=== PATIENT | male | born 1955 | race Caucasian/White ===

== ENCOUNTER 2016-08-27 06:16 | Inpatient (IN) | payer BC ==
--- NOTE | 2016-07-29 09:19 | HISTORY & PHYSICAL EXAMINATION ---
DATE OF ADMISSION: 08/27/2016 PROCEDURE: Left knee replacement. CHIEF COMPLAINT: Left knee pain. HISTORY OF PRESENT ILLNESS: Severo is a pleasant 60-year-old male who presents for preoperative evaluation prior to left knee replacement. He states he has been having pain in this knee for several years now which has gradually worsened, it has now gotten to the point that it is affecting his daily activities including walking, standing, going up and down steps. He had a previous knee arthroscopy in 01/2016 for partial medial and lateral meniscectomies as well as chondroplasty. He takes oral anti-inflammatories without relief. At this point in time, after discussing further care, would like to proceed with left knee replacement. PAST MEDICAL HISTORY: Sleep apnea, uses CPAP machine. ALLERGIES: No known drug allergies. CURRENT MEDICATIONS: 1. Glucosamine and chondroitin. 2. Advil as needed. PAST SURGICAL HISTORY: 1. Right knee arthroscopy. 2. Left knee arthroscopy. FAMILY HISTORY: Noncontributory. SOCIAL HISTORY: The patient denies a history of alcohol use, smoked 2 packs per day for 15 years, he quit in 1990. REVIEW OF SYSTEMS: Otherwise negative. Please see HPI for pertinent positives. PHYSICAL EXAMINATION: GENERAL: Pramod 60-year-old male in no acute distress, alert and oriented x3. He is 5 feet 10, weighs 225 pounds. HEENT: Normocephalic, atraumatic. CARDIAC: Regular rate and rhythm. No murmurs or gallops appreciated. Resting pulse 80 beats per minute. LUNGS: Clear to auscultation without rales or wheeze bilaterally. ABDOMEN: Soft, nontender. Bowel sounds present. EXTREMITIES: Left lower extremity is neurovascularly intact. Calves are soft and nontender. DP pulse +2. Demonstrate good quad tone. Straight leg raise without lag. No erythema or warmth. Has mild effusion. Overall has varus alignment. He has positive crepitation with motion, range of motion is 0/3/115. Knee is ligamentously stable. IMAGING: Reviewed of the left knee showed findings consistent with degenerative joint disease including joint space narrowing, subchondral sclerosis, osteophyte formation noted. Overall has varus alignment. IMPRESSION: Left knee degenerative joint disease. PLAN: Further care discussed with the patient. At this point in time, has failed conservative measures and would like to proceed with a left knee replacement. We will plan on discharge home with outpatient physical therapy, we will place on aspirin 81 mg p.o. b.i.d. for a month postop.
[2016-08-02 08:03] VITALS: BMI 34.0
--- NOTE | 2016-08-02 08:35 | PAT Medication Instructions ---
Service Date Aug 02, 2016. Current Home Medication List Testosterone (Androgel), 1 PKT TOP QAM Medication Instructions For Your Scheduled Surgery - Hold the following medications the morning of the surgery: Testosterone (Androgel), 1 PKT TOP QAM Nothing to eat or drink after midnight If you have any questions please call us at [phone] (Mercy Corral PA-C ) or [phone] or [phone]
--- NOTE | 2016-08-02 09:01 | DIAGNOSTIC IMAGING REPORT ---
TWO VIEW CHEST CLINICAL HISTORY: Preoperative examination. FINDINGS: PA and lateral chest radiographs are obtained. No prior studies are available for comparison at the time of dictation. The cardiomediastinal silhouette is unremarkable. There is mild after sclerotic calcification of the thoracic aorta. The lungs and pleural spaces are clear. There is no pneumothorax. The bony thorax appears intact. Mild degenerative change is noted throughout the thoracic spine. IMPRESSION: No active disease in the chest. Electronically signed by: Saulo Castro M.D. 08/02/2016 8:59 AM Dictated Date/Time: 08/02/2016 8:58 AM
[2016-08-02 09:39] LABS: BASO % 0.7 %; BASO ABS # 0.03 K/uL (0-0.2); COMPLETE YES; EOS % 3.9 %; HEMATOCRIT 39.5 % (42-52); IG% 0.2 %; LYMPH % 40.5 %; LYMPH ABS # 1.78 K/uL (1.2-3.4); MEAN CORPUSCULAR HEMOGLOBIN 28.6 pg (25-34); MEAN CORPUSCULAR HGB CONC 34.4 g/dl (32-36); MEAN PLATELET VOLUME 10.2 fL (7.4-10.4); NEUT % 42.7 %; PLATELET COUNT 172 K/uL (130-400); RED BLOOD COUNT 4.76 M/uL (4.7-6.1)
[2016-08-02 09:48] LABS: PROTHROMBIN TIME (PATIENT) 10.7 SECONDS (9.0-12.0)
[2016-08-02 09:52] LABS: ESTIMATED AVERAGE GLUCOSE 117 mg/dl; HA1C FLAG Normal (Normal)
[2016-08-02 10:12] LABS: CALCIUM 8.7 mg/dl (8.5-10.1); CREATININE 0.8 mg/dl (0.60-1.40); POTASSIUM 4.2 mmol/L (3.5-5.1)
[2016-08-27] VITALS (9 sets, daily range): BP systolic 111–145; BP diastolic 66–94; PULSE 70–86; TEMP 36.4–37.1; O2SAT 94–98; Ht 177.8 cm; Wt 107.4 kg
[~2016-08-27] VITALS: Ht 177.8 cm; Wt 107.4 kg
[~2016-08-27 06:16] MED LIST: ACETAMINOPHEN 500 MG TAB PO SCH; ANDG TOP; CEFAZOLIN 2000 MG/60 ML D5W 60 ML IV SCH; CeleBREX 200 MG CAP PO SCH; DEXAMETHASONE 4 MG TAB PO SCH; FAMOTIDINE 20 MG TAB PO SCH; GABAPENTIN 300 MG CAP PO SCH; LACTATED RINGER'S 1000ML 1,000 ML IV SCH; LACTATED RINGER'S 1000ML 500 ML IV ONE; LACTATED RINGER'S 1000ML IV SCH; METOCLOPRAMIDE HCL 10 MG TAB PO SCH; ROPIVACAINE 5MG/ML 30 ML 150 MG, BUPIVACAINE/EPINEPHR 0.5% MPF 30 ML, KETOROLAC TROMETH... INFIL SCH
[2016-08-27] MEDS ORDERED: BUPIVACAINE 0.25% 30 ML VIAL ONE (06:24)
[2016-08-27] MEDS ORDERED: BUPIVACAINE 0.5 % 5 MG/1 ML PF 10ML VIAL ONE (06:24)
[2016-08-27] MEDS ORDERED: MIDAZOLAM HCL 1 MG/ML 2ML VIAL ONE ×2 (07:00→07:01)
[2016-08-27] MEDS ORDERED: FENTANYL CITRATE INJ 50 MCG/1 ML 2 ML VIAL ONE (07:01)
--- NOTE | 2016-08-27 07:10 | History & Physical Bridge Note ---
H&P Re-Evaluation Bridge Note: I have examined the patient, reviewed the History & Physical and in the interval since the performance of the History & Physical I have noted the following changes of clinical significance: No changes noted
[2016-08-27] MEDS ORDERED: POVIDONE-IODINE OP SOLN 30 ML BTL ONE (07:19)
[2016-08-27] MEDS ORDERED: ORTHO JOINT ANESTHETIC ONE (07:19)
[2016-08-27] MEDS ORDERED: BACITRACIN 50000 UNIT VIAL ONE (07:20)
[2016-08-27] MEDS: TRANEXAMIC ACID INJ 1,000 MG in SODIUM CHLORIDE 0.9% 100ML 100 ML IV SCH ×2 (07:50→11:58)
[2016-08-27] MEDS ORDERED: KETOROLAC TROMETHAMINE 30 MG/ML VIAL IV. PRN (08:30)
[2016-08-27] MEDS ORDERED: PHENYLEPHRINE 100MCG/ML 5ML SYR IV PRN (08:30)
[2016-08-27] MEDS ORDERED: HYDROmorphone INJ 2 MG/ML SYR/VIAL IV PRN (08:30)
[2016-08-27] MEDS ORDERED: EpHEDrine SULFATE INJ 50 MG/ML AMP IV PRN (08:30)
[2016-08-27] MEDS ORDERED: ATROPINE SULFATE 0.1 MG/ML 5ML SYR IV PRN (08:30)
[2016-08-27] MEDS ORDERED: ONDANSETRON INJ 2 MG/ML 2 ML VIAL IV PRN ×2 (08:30→10:00)
[2016-08-27] MEDS ORDERED: PROPOFOL IV EMULSION 10 MG/ML 20 ML VIAL IV ONE (08:42)
[2016-08-27] MEDS ORDERED: LIDOCAINE HCL 2% 2 ML VIAL (20MG/ML) ONE (08:42)
[2016-08-27] MEDS ORDERED: EpHEDrine SULFATE 50MG/5ML SYR ONE (08:42)
--- NOTE | 2016-08-27 09:17 | [facility] Post Operative Brief Note ---
Immediate Operative Summary Operative Date Aug 27, 2016. Pre-Operative Diagnosis Left knee degenerative joint disease Post-Operative Diagnosis Left knee degenerative joint disease Procedure(s) Performed Left knee total arthroplasty Surgeon Dr Osmin Gamble Regulatory Affairs Intern Surgeon(s) Dr Issac Galeana Estimated Blood Loss 10ML Findings severe djd lt knee Specimens A: Left knee bone and tissue Complication(s) None Disposition Recovery Room / PACU
--- NOTE | 2016-08-27 09:29 | OPERATIVE REPORT ---
DATE OF OPERATION: 08/27/2016 PREOPERATIVE DIAGNOSIS: Severe end-stage degenerative joint disease, left knee. POSTOPERATIVE DIAGNOSIS: Severe end-stage degenerative joint disease, left knee. PROCEDURE: Left total knee arthroplasty utilizing Payan \T\ Nephew Journey II nonblock total knee arthroplasty size 5 femur, 5 tibia, 9 poly, 32 oval patella. SURGEON: Dr. Gamble. HOME THEATER SPECIALIST: IVONNE Farrell, who was necessary for prepping, draping, retraction, and closure of deep fascia, subcu and skin, and was necessary for the case. ESTIMATED BLOOD LOSS: 10 mL COMPLICATIONS: None. TOURNIQUET TIME: 40 minutes. HISTORY: The patient presents as a very pleasant 60-year-old white male with complaints of ongoing severe endstage DJD about his left knee and presents today for left total knee arthroplasty after failing attempts at conservative management. OPERATION AND FINDINGS: PROCEDURE: The patient was properly prepped and draped in supine position for total knee arthroplasty after identifying the appropriate surgical site. An anterior midline incision was made through the subcutaneous tissues down to the region of the extensor mechanism. A medial parapatellar incision was subsequently made. Meticulous hemostasis was obtained and performed at all times. The patella having been subluxed lateralward, medial and lateral meniscal remnants were excised. The patellar cut was then initially made and was sized to the appropriate size. After subluxing the tibia forward the appropriate meniscal fragments having been removed the distal femur was then cut first utilizing a Payan and Nephew nonblock. The distal femoral cuts and chamfer cuts were all made under direct visualization and the proximal tibial osteotomy cut was also made utilizing Payan and Nephew nonblocks and checked with an extramedullary guide. The appropriate trial components on the femur and tibia were placed. Appropriate trial spacers were used to check flexion and extension gaps. With flexion and extension gaps being equal, the components were then subsequently after thorough irrigation and debridement lavage components were then subsequently cemented in the following order: femur, tibia and patella. Exparel was used for intraoperative anesthesia, the medial parapatellar incision was closed utilizing #1 Vicryl, subQ was closed with 2-0 Vicryl, skin was closed with skin clips. A sterile compression dressing was placed. The patient was taken to recovery room in stable condition. Due to the complex nature of the procedure, the entire surgery was performed with the operational assistance of IVONNE Farrell. The golf course assistant, under direct supervision, was involved in the actual performance of all aspects of the surgical procedure including hemostasis, tissue retraction and incision, instrument management, patient positioning, and wound closure. I attest to the content of the Intraoperative Record and any orders documented therein. Any exceptio ns are noted below.
[2016-08-27] MEDS ORDERED: ALUMINUM/MAGNESIUM/SIMETH (MAALOX MAX) 30 ML UDC PO PRN (10:00)
[2016-08-27] MEDS ORDERED: ZOLPIDEM TARTRATE 5 MG TAB PO PRN (10:00)
[2016-08-27] MEDS ORDERED: MAGNESIUM HYDROXIDE SUSP 30 ML UDC PO PRN (10:00)
[2016-08-27] MEDS ORDERED: BISACODYL 10 MG SUPP PR PRN (10:00)
[2016-08-27] MEDS ORDERED: DiphenhydrAMINE HCL 50 MG/ML VIAL IV PRN (10:00)
[2016-08-27] MEDS ORDERED: TAMSULOSIN HCL 0.4 MG CAP PO PRN (10:00)
[2016-08-27] MEDS ORDERED: MoRPHine SULFATE 2 MG/ML CARP IV PRN (10:00)
[2016-08-27] MEDS ORDERED: MoRPHine SULFATE 4 MG/ML 1 ML CARP\\VIAL IV PRN (10:15)
[2016-08-27] MEDS ORDERED: MoRPHine SULFATE 10 MG/ML CARP/VIAL IV PRN (10:15)
--- NOTE | 2016-08-27 10:28 | DIAGNOSTIC IMAGING REPORT ---
LEFT KNEE 2 VIEWS History: Left total knee arthroplasty. Degenerative arthritis. Postop. FINDINGS: The patient is status post a left total knee arthroplasty. The hardware is intact. No fracture or dislocation. Skin dwain and surgical drains are in place. IMPRESSION: Left total knee arthroplasty. No evidence for hardware complication. Electronically signed by: Bob Black M.D. 08/27/2016 10:26 AM Dictated Date/Time: 08/27/2016 10:26 AM
[2016-08-27] MEDS: D5W AND 1/2NSS + 20MEQ KCL 1,000 ML IV SCH ×2 (11:58→21:58)
--- NOTE | 2016-08-27 11:59 | Anesthesiology Progress Note ---
Anesthesia Post Op Note Date & Time Aug 27, 2016 at 11:59 Vital Signs Pain Intensity: 0 Vital Signs Past 12 Hours Date Time Temp Pulse Resp B/P Pulse Ox O2 Delivery O2 Flow Rate FiO2 08/27/16 11:41 79 18 121/76 97 Nasal Cannula 2.0 08/27/16 10:45 36.2 74 12 107/62 96 Nasal Cannula 2 08/27/16 10:30 78 15 105/63 98 Nasal Cannula 2 08/27/16 10:20 73 15 106/64 98 Nasal Cannula 2 08/27/16 10:10 74 16 109/62 100 Mask 10 08/27/16 10:00 78 16 97/58 99 Mask 10 08/27/16 09:53 36.2 78 16 103/61 99 Mask 10 08/27/16 07:06 37.1 70 18 144/94 98 Room Air Notes Mental Status: alert / awake / arousable, participated in evaluation Pt Amnestic to Procedure: Yes Nausea / Vomiting: adequately controlled Pain: adequately controlled Airway Patency, RR, SpO2: stable & adequate BP & HR: stable & adequate Hydration State: stable & adequate Anesthetic Complications: no major complications apparent
[2016-08-27] MEDS: KETOROLAC TROMETHAMINE 30 MG/ML VIAL IV. SCH ×3 (13:14→23:57)
[2016-08-27] MEDS: FERROUS GLUCONATE 324 MG TAB PO SCH ×2 (13:15→18:10)
[2016-08-27] MEDS: ACETAMINOPHEN 500 MG TAB PO SCH ×2 (13:59→21:58)
[2016-08-27 14:47] LABS: URINE APPEARANCE CLEAR (CLEAR); URINE BILIRUBIN NEG (NEG); URINE COLOR YELLOW; URINE EPITHELIAL CELL AUTO 20-30 /lpf (0-5); URINE NITRITE NEG (NEG); URINE PH 6.5 (4.5-7.5); URINE SPECIFIC GRAVITY 1.012 (1.000-1.030); UROBILINOGEN NEG (NEG)
[2016-08-27 14:52] LABS: MANUAL MICROSCOPIC REQUIRED? NO; REVIEW REQ? NO
[2016-08-27] MEDS: CEFAZOLIN IV 2,000 MG in DEXTROSE 5% 50ML 50 ML IV SCH ×2 (16:28→23:57)
[2016-08-27] MEDS: OXYCODONE HCL 10 MG TABCR (OXYCONTIN) PO SCH (21:12)
[2016-08-27] MEDS: DOCUSATE SODIUM 100 MG CAP PO SCH (21:12)
[2016-08-27] MEDS: SENNA 8.6 MG TAB PO SCH (21:12)
[2016-08-27] MEDS: ASPIRIN 81 MG ECTAB PO SCH (21:13)
[2016-08-28] MEDS: OXYCODONE HCL IR 5 MG TAB (IMMEDIATE RELEASE) PO PRN ×3 (01:29→16:14)
[2016-08-28 03:25] VITALS: BP 110/69; PULSE 62; TEMP 36; O2SAT 95
[2016-08-28] MEDS: KETOROLAC TROMETHAMINE 30 MG/ML VIAL IV. SCH (05:52)
[2016-08-28] MEDS: ACETAMINOPHEN 500 MG TAB PO SCH ×3 (05:52→21:51)
[2016-08-28 07:17] LABS: HEMATOCRIT 34.9 % (42-52); MEAN CELL VOLUME 82.3 fL (80-100); MEAN CORPUSCULAR HEMOGLOBIN 28.5 pg (25-34); MEAN CORPUSCULAR HGB CONC 34.7 g/dl (32-36); PLATELET COUNT 179 K/uL (130-400); RED BLOOD COUNT 4.24 M/uL (4.7-6.1)
[2016-08-28 07:35] VITALS: BP 117/75; PULSE 63; TEMP 36.4; O2SAT 96
--- NOTE | 2016-08-28 07:47 | Orthopedic Progress Note ---
Orthopedic Progress Note Date of Service Aug 28, 2016. Subjective Post OP Day: 1 Reports: feeling well, Denies: SOB, calf pain, chest pain, light headedness, nausea / vomiting Additional Notes: pain controlled presently Objective calves soft nontender, N/V intact, A&O x3, toes mobile, hemovac drainage (225ml latest shift) Dressings with mild drainage overnight Date Time Temp Pulse Resp B/P Pulse Ox O2 Delivery O2 Flow Rate FiO2 08/28/16 07:35 36.4 63 18 117/75 96 Room Air 08/28/16 03:25 36.0 62 16 110/69 95 CPAP 08/27/16 23:55 CPAP 08/27/16 23:44 36.4 80 15 111/66 94 Room Air 08/27/16 19:31 36.9 81 18 145/79 95 Room Air 08/27/16 15:55 36.6 86 18 126/76 97 Room Air 08/27/16 15:30 Room Air 08/27/16 13:55 36.5 79 18 125/80 97 Nasal Cannula 3.0 08/27/16 13:23 36.5 79 18 132/77 97 Nasal Cannula 3.0 08/27/16 12:09 79 117/74 08/27/16 11:41 79 18 121/76 97 Nasal Cannula 2.0 08/27/16 11:00 Nasal Cannula 2.0 08/27/16 11:00 Nasal Cannula 2.0 08/27/16 11:00 36.4 77 12 125/75 95 Nasal Cannula 2.0 08/27/16 10:45 36.2 74 12 107/62 96 Nasal Cannula 2 08/27/16 10:30 78 15 105/63 98 Nasal Cannula 2 08/27/16 10:20 73 15 106/64 98 Nasal Cannula 2 08/27/16 10:10 74 16 109/62 100 Mask 10 08/27/16 10:00 78 16 97/58 99 Mask 10 08/27/16 09:53 36.2 78 16 103/61 99 Mask 10 Laboratory Results 24 Hours: Test 08/28/16 06:30 Hematocrit 34.9 % Hemoglobin 12.1 g/dL Assessment & Plan Assessment: POD 1 s/p Left TKA Plan: PT / OT Planning for home with OPPT Inhouse Planning Pain Management: Celebrex, Oxycontin, Morphine, PO Tylenol, Oxy IR DVT Prophylaxis: TEDs, SCDs, ASA Discharge Planning Discharge Planning: home with oppt Pain Management: Oxycontin, Oxy IR DVT Prophylaxis: TEDs, ASA Therapy: Physical Therapy
[2016-08-28 07:50] LABS: BUN/CREATININE RATIO 13.4 (10-20); CALCIUM 8.4 mg/dl (8.5-10.1); CREATININE 0.99 mg/dl (0.60-1.40); POTASSIUM 4.7 mmol/L (3.5-5.1)
--- NOTE | 2016-08-28 07:53 | Discharge Instructions ---
Discharge Instructions Admission Reason for Admission: Left Knee Osteoarthritis Discharge Discharge Diagnosis / Problem: Left Knee Djd Discharge Goals Goal(s): Decrease discomfort, Improve function Activity Recommendations Activity Limitations: per Instructions/Follow-up section Weightbearing Status: Left weightbearing (as tolerated) . Instructions / Follow-Up Instructions / Follow-Up ACTIVITY RECOMMENDATIONS: SELF CARE INSTRUCTIONS AFTER TOTAL KNEE REPLACEMENT A. You may need to continue a physical therapy program after discharge from the hospital. There are several options available to you. Your doctor will assist you in selecting the best one for you. 1. An out-patient facility 2 to 3 times a week for therapy or home therapy. 2. Continue working on all exercises taught to you in the hospital. Your goals should be to increase bending of your knee to 90 degrees and beyond and to fully straighten your knee. B. You may progress at your own pace from walking with a walker or crutches to a cane; then to no assistive devices. C. Make walking a part of your daily routine. Be up as much as comfortable with rest periods throughout the day. Rest with leg elevation is very important. Use the ice wrap frequently for the first 3-4 weeks. D. There are no restrictions on activities. You may ride in a car, shop, participate in investment accounting clerk and all social activities. E. Wear the long elastic stockings (NARESH hose) 20 hours a day for 2 weeks after surgery. They can be removed several times a day for laundering and for a bath. F. You may shower, no tub baths until cleared by your doctor. SPECIAL CARE INSTRUCTIONS: VERY IMPORTANT TO READ AND REVIEW A. There are a few signs you need to watch for after you are home. Call [facility] if you notice any of the followin. Increased severe knee pain. Some pain is expected especially when you exercise. 2. Increased swelling in your leg or knee; pain or swelling of the calf muscle in either lower leg. 3. Any fluid drainage from the incision. 4. Shortness of breath or chest pain. B. Please call [facility] at if you have any concerns or questions about your operation or recovery. The doctor or his nurse will return your call promptly. C. You must take antibiotics before dental work, bladder, bowel or other surgery. Your doctor will provide you with a permanent care to carry describing this precaution. IMPORTANT: * REMEMBER TO TAKE ASPIRIN, 81 MG, TWICE DAILY FOR 4 WEEKS UNLESS OTHERWISE DIRECTED. THIS IS YOUR BLOOD THINNER. * HIGH RISK PATIENTS MAY BE PRESCRIBED A STRONGER BLOOD THINNER. THIS WILL BE PROVIDED AT DISCHARGE. * CALL IF INCREASED PAIN, REDNESS, DRAINAGE OR FEVER GREATER THAT 101. * WEAR NARESH HOSE 20 HOURS PER DAY FOR 2 WEEKS. * Silverlon- This is a large adhesive bandage that contains silver ions. This helps your incision heal by fighting off bacteria and protecting it from the outside environment. You are permitted to shower with this dressing. This will remain on your incision for 7 days and then should be removed. Some visible blood or drainage through the dressing window is normal. If there is significant drainage or leaking noted before the 7 days notify your doctor's office immediately. Once removed, keep incision clean and dry. If there is any drainage or redness noted, please call your surgeon. . FOLLOW UP VISIT: If appointment is not already scheduled: Please call [facility] to make a follow-up appointment for 2 weeks after your surgery at . Current Hospital Diet Patient's current hospital diet: Regular Diet Discharge Diet Recommended Diet: Regular Diet Procedures Procedures Performed: Left knee total arthroplasty Pending Studies Studies pending at discharge: no Laboratory Results Hemoglobin A1c Test 08/02/16 08:30 Range/Units Estimated Average Glucose 117 mg/dl Hemoglobin A1c 5.7 H 4.5-5.6 % Medical Emergencies . Who to Call and When: Medical Emergencies: If at any time you feel your situation is an emergency, please call 911 immediately. . Non-Emergent Contact Non-Emergency issues call your: Surgeon Call Non-Emergent contact if: temperature is above 101.5, your pain is not controlled, your pain is worsening, wound has increased drainage, wound has increased redness . "Provider Documentation" section prepared by Issac Galeana. VTE Core Measure Inpt VTE Proph given/why not?: Other Anticoagulation, T.E.D. Stockings, SCD's
[2016-08-28] MEDS: TESTOSTERONE EXT SCH (08:49)
[2016-08-28] MEDS: DOCUSATE SODIUM 100 MG CAP PO SCH ×2 (08:49→20:57)
[2016-08-28] MEDS: [UNRECOGNIZED DRUG - OTHER] EXT SCH (08:49)
[2016-08-28] MEDS: D5W AND 1/2NSS + 20MEQ KCL 1,000 ML IV SCH (08:49)
[2016-08-28] MEDS: OXYCODONE HCL 10 MG TABCR (OXYCONTIN) PO SCH ×2 (08:49→20:58)
[2016-08-28] MEDS: FERROUS GLUCONATE 324 MG TAB PO SCH ×3 (08:49→19:14)
[2016-08-28] MEDS: ASPIRIN 81 MG ECTAB PO SCH ×2 (08:50→20:57)
[2016-08-28] MEDS: MULTIVITAMIN TAB PO SCH (08:50)
[2016-08-28] MEDS: PANTOprazole SOD 40 MG TAB PO SCH (09:38)
[2016-08-28 12:10] VITALS: BP 130/82; PULSE 71; TEMP 36.4; O2SAT 98
[2016-08-28 15:01] VITALS: BP 145/80; PULSE 69; TEMP 36.4; O2SAT 98
[2016-08-28] MEDS: SENNA 8.6 MG TAB PO SCH (20:57)
[2016-08-28] MEDS: CeleBREX 200 MG CAP PO SCH (20:58)
[2016-08-28 23:18] VITALS: BP 110/71; PULSE 71; TEMP 35.9; O2SAT 97
[2016-08-29] MEDS: OXYCODONE HCL IR 5 MG TAB (IMMEDIATE RELEASE) PO PRN ×4 (03:58→11:35)
[2016-08-29] MEDS: ACETAMINOPHEN 500 MG TAB PO SCH (06:01)
[2016-08-29 07:43] VITALS: BP 123/76; PULSE 63; TEMP 36.4; O2SAT 99
--- NOTE | 2016-08-29 07:43 | Orthopedic Progress Note ---
Orthopedic Progress Note Date of Service Aug 29, 2016. Subjective Post OP Day: 2 Reports: feeling well, Denies: complaints Objective calves soft nontender, N/V intact, A&O x3, toes mobile Silverlon with drainage and cracked at the proximal end. Date Time Temp Pulse Resp B/P Pulse Ox O2 Delivery O2 Flow Rate FiO2 08/29/16 00:25 Room Air 08/28/16 23:18 35.9 71 16 110/71 97 Room Air 08/28/16 16:00 Room Air 08/28/16 15:01 36.4 69 16 145/80 98 Room Air 08/28/16 12:10 36.4 71 18 130/82 98 Room Air 08/28/16 08:20 Room Air Assessment & Plan Assessment: POD 2 s/p Left TKA Plan: Continue PT / OT Planning for home with OPPT today Inhouse Planning Pain Management: Celebrex, Oxycontin, Morphine, PO Tylenol, Oxy IR DVT Prophylaxis: TEDs, SCDs, ASA Discharge Planning Discharge Planning: home with oppt Pain Management: Celebrex, Oxycontin, Oxy IR DVT Prophylaxis: TEDs, ASA Therapy: Physical Therapy
[2016-08-29] MEDS ORDERED: CLB200 PO (07:48)
[2016-08-29] MEDS ORDERED: SNK PO (07:48)
[2016-08-29] MEDS ORDERED: ONDA8TAB6 PO (07:48)
[2016-08-29] MEDS ORDERED: RXC5 PO (07:48)
[2016-08-29] MEDS ORDERED: OXYSR10 PO (07:48)
[2016-08-29] MEDS ORDERED: ACET-1138 PO (07:48)
[2016-08-29] MEDS ORDERED: ASPEC81 PO (07:48)
[2016-08-29] MEDS: FERROUS GLUCONATE 324 MG TAB PO SCH (09:02)
[2016-08-29] MEDS: OXYCODONE HCL 10 MG TABCR (OXYCONTIN) PO SCH (09:02)
[2016-08-29] MEDS: ASPIRIN 81 MG ECTAB PO SCH (09:02)
[2016-08-29] MEDS: DOCUSATE SODIUM 100 MG CAP PO SCH (09:03)
[2016-08-29] MEDS: PANTOprazole SOD 40 MG TAB PO SCH (09:03)
[2016-08-29] MEDS: CeleBREX 200 MG CAP PO SCH (09:03)
[2016-08-29] MEDS: MULTIVITAMIN TAB PO SCH (09:03)
[2016-08-29] MEDS: [UNRECOGNIZED DRUG - OTHER] EXT SCH (09:04)
[2016-08-29] MEDS: TESTOSTERONE EXT SCH (09:04)
[2016-08-29 11:01] VITALS: BP 123/76; PULSE 63; TEMP 36.4; O2SAT 99
--- NOTE | 2016-08-29 13:43 | DISCHARGE SUMMARY ---
DISCHARGE DIAGNOSIS: Degenerative joint disease left knee. SECONDARY DIAGNOSES: Sleep apnea with use of CPAP machine. CONSULTS: None. COMPLICATIONS: None. PROCEDURES: Left total knee arthroplasty performed by Dr. Gamble on 08/27/2016. BRIEF HISTORY: As dictated in the history and physical. HOSPITAL SUMMARY: The patient was admitted on the above-noted date and had the above-noted surgery performed which he tolerated well. On the first postoperative day, he was feeling well and had no complaints. Pain was controlled. Calves were soft and nontender. Neurovascularly was intact. He was alert and oriented x3. Toes were mobile. Dressings did have some noted drainage from overnight. Vital signs were stable. He was afebrile and hemoglobin was 12.1. He was started on physical therapy protocol and continued on DVT prophylaxis and pain management. Plans were for him to return home with outpatient PT. By his second postoperative day, he was feeling well and had no complaints. He had achieved 115 degrees of flexion in PT the previous day and he was remaining stable. Calves are soft, nontender, neurovascularly intact. Toes were mobile. His Silverlon dressing had drainage noted in the window and was cracked at the proximal end. Vital signs were stable. He was afebrile. He was continued on his PT protocol. He was later on progressing well with his physical therapy in the fact that he had obtained 125 degrees of flexion and was ambulating 315 feet x2 with a rolling walker independently and it was felt that he could be discharged to home. For further review, please see chart. LAB AND X-RAY DATA: As per chart. DISCHARGE INSTRUCTIONS: The patient was discharged to home in satisfactory condition on 08/29/2016. DIET: Regular. ACTIVITY: Weightbearing as tolerated left lower extremity. Follow TK instruction sheets and special care instructions as noted. Follow up with Dr. Gamble in 2 weeks. The patient to call for appointment if one has not been made for you. DISCHARGE MEDICATIONS: Acetaminophen 1000 mg p.o. q. 8 hours, aspirin 81 mg p.o. b.i.d., Celebrex 200 mg p.o. b.i.d., Zofran 8 mg p.o. t.i.d. p.r.n., OxyContin 10 mg p.o. q. 12 hours, oxycodone 5-10 mg p.o. q. 4 hours p.r.n., senna 17.2 mg p.o. at bedtime and continue taking AndroGel.
== END 2016-08-29 12:15 | disposition home or self-care (01) | DRG 470 ==
LOC: ENRESERVTM → ENRESERVDT → C.ACU 06:16 → C.MSW 09:55
PROVIDERS: ADMIT Orthopaedic Surgery; ATTEND Orthopaedic Surgery
PROC: 0SRD0J9 Replacement of Left Knee Joint with Synthetic Substitute, Cemented, Open Approach (ICD-10-PCS; principal; 2016-08-27 08:15)
DX: M17.12 Unilateral primary osteoarthritis, left knee (principal); G47.30 Sleep apnea, unspecified; E66.9 Obesity, unspecified; Z68.34 Body mass index [BMI] 34.0-34.9, adult; Z99.89 Dependence on other enabling machines and devices; Z87.891 Personal history of nicotine dependence; Q66.89 Other specified congenital deformities of feet; Z79.899 Other long term (current) drug therapy; Z79.1 Long term (current) use of non-steroidal anti-inflammatories (NSAID)

== ENCOUNTER 2017-08-26 08:36 | Inpatient (IN) | payer BC ==
--- NOTE | 2017-08-22 11:18 | DIAGNOSTIC IMAGING REPORT ---
CHEST 2 VIEWS ROUTINE HISTORY: 61 years-old Male PRE OP preoperative exam. No acute chest complaints. COMPARISON: Chest radiographs 08/02/2016 TECHNIQUE: PA and lateral views of the chest FINDINGS: Cardiomediastinal and hilar silhouettes are within normal limits. Atherosclerosis of the aorta. No pneumothorax, pleural effusion, focal airspace consolidation or overt pulmonary edema. Degenerative changes are seen within the right shoulder and spine. IMPRESSION: No acute process. The above report was generated using voice recognition software. It may contain grammatical, syntax or spelling errors. Electronically signed by: Murali Fernandez M.D. 08/22/2017 11:16 AM Dictated Date/Time: 08/22/2017 11:16 AM
[2017-08-22 12:15] LABS: BASO % 0.4 %; BASO ABS # 0.02 K/uL (0-0.2); EOS % 3.2 %; EOS ABS # 0.15 K/uL (0-0.5); HEMATOCRIT 40.1 % (42-52); HEMOGLOBIN 13.2 g/dL (14.0-18.0); IG# 0.01 K/uL (0.00-0.02); LYMPH % 37.3 %; LYMPH ABS # 1.77 K/uL (1.2-3.4); MEAN CORPUSCULAR HGB CONC 32.9 g/dl (32-36); MEAN PLATELET VOLUME 11.2 fL (7.4-10.4); MONO % 8.6 %; MONO ABS # 0.41 K/uL (0.11-0.59); NEUT % 50.3 %; NEUT ABS # 2.38 K/uL (1.4-6.5); PLATELET COUNT 194 K/uL (130-400); RED CELL DISTRIBUTION WIDTH SD 43.9 fL (36.4-46.3); WHITE BLOOD COUNT 4.74 K/uL (4.8-10.8)
[2017-08-22 12:30] LABS: PTT PATIENT 24.1 SECONDS (21.0-31.0)
[2017-08-22 12:33] LABS: ALBUMIN 3.7 gm/dl (3.4-5.0); BLOOD UREA NITROGEN 12 mg/dl (7-18); CALCIUM 8.8 mg/dl (8.5-10.1); CARBON DIOXIDE 29 mmol/L (21-32); CREATININE 0.82 mg/dl (0.60-1.40); GLUCOSE 84 mg/dl (70-99); POTASSIUM 3.8 mmol/L (3.5-5.1); SODIUM 138 mmol/L (136-145)
[2017-08-22 12:58] LABS: HEMOGLOBIN A1C 5.7 % (4.5-5.6)
[2017-08-22 15:32] VITALS: BMI 32.0
[~2017-08-26] VITALS: Ht 177.8 cm; Wt 102.3 kg
[2017-08-26] VITALS (7 sets, daily range): BP systolic 99–137; BP diastolic 61–89; PULSE 64–80; TEMP 36.3–36.8; O2SAT 93–98; Ht 177.8 cm; Wt 102.3 kg
--- NOTE | 2017-08-26 07:06 | History and Physical ---
History & Physical Date Aug 26, 2017. Chief Complaint Patient presents with severe end-stage tricompartmental degenerative joint disease right knee after failing attempts at conservative management physical therapy anti-inflammatories relative rest activity modification injections viscous supplementations and presents of 4 total knee arthroplasty History of Present Illness Ongoing pain about the right knee with severe end-stage tricompartmental degenerative joint disease no response to conservative management and physical therapy anti-inflammatories relative rest activity modification viscous supplementations The patient is a 61 year old male with complaints of Past Medical/Surgical History Medical Problems: (1) Left knee DJD Additional History Hepatic Disease: No Endocrine Disorder: No Kidney Disease: No Hypertension: No Heart Disease: No Bleeding Tendencies: No Infectious Diseases: No Allergies Coded Allergies: No Known Allergies (Unverified , 08/22/17) Home Medications Scheduled Aspirin-Caffeine (Obi Back & Body 500-32.5 mg), 1 TAB PO PRN Testosterone (Androgel), 1 PKT TOP QAM Physical Examination Skin: warm/dry, no rash Eyes: normal inspection, EOMI, sclerae normal ENT: normal ENT inspection, pharynx normal Head: normocephalic, atraumatic Neck: supple, no adenopathy, trachea midline Respiratory/Chest: lungs clear, normal breath sounds, no respiratory distress Cardiovascular: regular rate, rhythm, no edema, no murmur Abdomen / GI: normal bowel sounds, non tender Back: normal inspection Extremities: + pertinent finding (severe end-stage DJD right knee with varus alignment subchondral cysts marginal osteophytes) Diagnosis Patient presents with severe end-stage tricompartmental degenerative joint disease subchondral cystic changes marginal osteophytes varus alignment on the bone changes large muscle conservative therapy Plan of Treatment Total knee arthroplasty postoperative pain management DVT prophylaxis antibiotics medical management physical therapy necessary
[~2017-08-26 08:36] MED LIST changes: +ASPI-563 PO; +BUPIVACAINE 0.25% 30 ML VIAL ONE; +BUPIVACAINE 0.5 % 5 MG/1 ML PF 10ML VIAL ONE; -CEFAZOLIN 2000 MG/60 ML D5W 60 ML IV SCH; +CEFAZOLIN 2000MG IV PUSH 15 ML IV SCH; -GABAPENTIN 300 MG CAP PO SCH; +GABAPENTIN 600 MG PO SCH; -LACTATED RINGER'S 1000ML 500 ML IV ONE; -LACTATED RINGER'S 1000ML IV SCH; +ROPIVACAINE 5MG/ML 30 ML 150 MG, BUPIVACAINE 0.5% MPF INJ 30 ML, EpINEphrine HCL INJ 0.... INFIL SCH; -ROPIVACAINE 5MG/ML 30 ML 150 MG, BUPIVACAINE/EPINEPHR 0.5% MPF 30 ML, KETOROLAC TROMETH... INFIL SCH
[2017-08-26] MEDS ORDERED: ONDANSETRON INJ 2 MG/ML 2 ML VIAL IV PRN ×2 (08:45→12:45)
[2017-08-26] MEDS ORDERED: HYDROmorphone INJ 0.5 MG/0.5 ML SYR IV PRN (08:45)
[2017-08-26] MEDS ORDERED: LABETALOL HCL IV 5 MG/ML 20ML IV PRN (08:45)
[2017-08-26] MEDS ORDERED: FENTANYL CITRATE INJ 50 MCG/1 ML 2 ML VIAL IV PRN (08:45)
[2017-08-26] MEDS ORDERED: ATROPINE SULFATE 0.1 MG/ML 5ML SYR IV PRN (08:45)
[2017-08-26] MEDS ORDERED: MEPERIDINE HCL 25 MG/ML CARP IV PRN (08:45)
[2017-08-26] MEDS ORDERED: EpHEDrine SULFATE INJ 50 MG/ML AMP IV PRN (08:45)
[2017-08-26] MEDS ORDERED: MIDAZOLAM HCL 1 MG/ML 2ML VIAL ONE ×3 (09:25→10:53)
[2017-08-26] MEDS ORDERED: ONDANSETRON INJ 2 MG/ML 2 ML VIAL ONE (09:25)
[2017-08-26] MEDS ORDERED: LIDOCAINE HCL 2% 2 ML VIAL (20MG/ML) ONE (09:25)
[2017-08-26] MEDS ORDERED: DEXAMETHASONE SOD INJ 4 MG/ML VIAL ONE (09:25)
[2017-08-26] MEDS ORDERED: PROPOFOL IV EMULSION 10 MG/ML 20 ML VIAL IV ONE ×3 (09:25→12:14)
[2017-08-26] MEDS ORDERED: FENTANYL CITRATE INJ 50 MCG/1 ML 2 ML VIAL ONE (09:26)
[2017-08-26] MEDS ORDERED: BACITRACIN 50000 UNIT VIAL ONE (10:10)
[2017-08-26] MEDS ORDERED: POVIDONE-IODINE OP SOLN 30 ML BTL ONE (10:10)
[2017-08-26] MEDS ORDERED: ORTHO JOINT ANESTHETIC ONE (10:10)
[2017-08-26] MEDS: TRANEXAMIC ACID INJ 1,000 MG x 2 Bags IV SCH ×4 (10:30→14:21)
--- NOTE | 2017-08-26 11:44 | [facility] Post Operative Brief Note ---
Immediate Operative Summary Operative Date Aug 26, 2017. Pre-Operative Diagnosis right knee degenerative joint disease Post-Operative Diagnosis same as preop Procedure(s) Performed Right total knee arthroplasty Surgeon DR. Osmin Gamble Dev Ops Engineer Surgeon(s) Issac CORONADO Estimated Blood Loss 5 cc Findings Consistent with Post-Op Diagnosis Specimens A: right knee bone and tissue Anesthesia Type MAC Spinal Regional Complication(s) none Disposition Disposition: Recovery Room / PACU
--- NOTE | 2017-08-26 11:46 | [facility] Operative Report ---
Operative Report Operative Date Aug 26, 2017. Pre-Operative Diagnosis right knee degenerative joint disease Post-Operative Diagnosis same as preop Procedure(s) Performed Right total knee arthroplasty Surgeon DR. Osmin Gamble Sample Prep Technician Surgeon(s) Issac CORONADO Estimated Blood Loss 5 cc Findings Patient presents with severe end-stage tricompartmental degenerative joint disease Nourse wants to conservative therapy including physical therapy anti- inflammatories relative rest activity modification viscus supplementation patient's preoperative x-rays and clinical examinations and with varus alignment subchondral sclerosis cystic changes marginal osteophytes and varus alignment Specimens A: right knee bone and tissue Anesthesia Type MAC Spinal Regional Complication(s) none Disposition Recovery Room / PACU Indications Patient presents after failing attempts at conservative management including physical therapy anti-inflammatories relative rest activity modification viscus supplementation x-rays revealed evidence of subchondral cystic changes sclerosus marginal osteophytes bone the bone changes varus alignment Description of Procedure After proper prepping and draping of the Right lower extremity anterior midline incision was made over the region of the extensor extensor mechanism after meticulous hemostasis was obtained and maintained in subcutaneous tissues a medial parapatellar incision was made The patella was subluxed lateralward the medial lateral gutter were cleaned from any hypertrophic synovitis and scar tissue of the distal femoral block was placed and the distal femoral osteotomy cut was made subsequently the chamfers anterior and posterior osteotomy cuts were made utilizing the 4-in-1 block the tibia was subsequently subluxed anteriorward medial and ateral meniscal remnants were excised in their entirety remnants of the anterior and posterior cruciate ligaments were excised in their entirety excellent exposure of the proximal tibia was obtained the tibial osteotomy guide was placed on the proximal tibial osteotomy cut was made once again the knee was irrigated with copious amounts of sterile saline solution the patella was subsequently everted lateralward thickened scar tissue around the patella was removed the patella was subsequently cut utilizing a freehand technique and was drilled prepared for final preparation and placement of patella socially flexion-extension gaps were checked and the equal and symmetric trials were placed to the appropriate femoral and tibial trials with poly-spacer being placed for equal flexion and extension gaps and full range of motion including extension to 0 and flexion to 140 the trial components after having been taken to recovery range of motion was subsequently removed meticulous hemostasis was obtained and maintained subsequently a knee block injection of joint cocktail including ropivacaine 0.5% 150 mg. Bupivacaine 0.5 % epinephrine 1-200,030 mL's toradol 30 mg dexamethasone 4 mg ketamine 10 mg clonidine 100 micrograms normal saline solution 30 mg was infiltrated into the soft tissues of the posterior knee medial lateral gutters and periosteal synovium special attention was paid to protect neurovascular structures at all times subsequently trial components having been removed the knee was irrigated with sterile saline solution. debris was removed the proximal tibia was subsequently prepared and was made ready for the placement of the tibial component tibial component was also cemented and tamped into position the femoral component was subsequently placed and cemented in the position the patellar component was subsequently cemented in position because hemostasis once again obtained and maintained wound having been thoroughly irrigated with debridement and debridement lavage was performed as well as a medial parapatellar incision closed with #1 Vicryl in interrupted fashion subcutaneous was closed with #2 Vicryl skin was closed with skin clips. PA-C was necessary for prepping and drapping as well as wound closure of deep fascia Sub cutaneous tissue and skin and was necessary for the case. A sterile compressive dressing was placed patient was taken to recovery in stable condition of report dictated by Tye I attest to the content of the Intraoperative Record and any orders documented therein. Any exceptions are noted below. I attest to the content of the Intraoperative Record and any orders documented therein. Any exceptions are noted below.
[2017-08-26] MEDS ORDERED: ALUMINUM/MAGNESIUM/SIMETH (MAALOX MAX) 30 ML UDC PO PRN (12:45)
[2017-08-26] MEDS ORDERED: MAGNESIUM HYDROXIDE SUSP 30 ML UDC PO PRN (12:45)
[2017-08-26] MEDS ORDERED: TRAMADOL HCL 50 MG TAB PO PRN (12:45)
[2017-08-26] MEDS ORDERED: MoRPHine SULFATE 2 MG/ML CARP IV PRN (12:45)
[2017-08-26] MEDS ORDERED: TAMSULOSIN HCL 0.4 MG CAP PO PRN (12:45)
[2017-08-26] MEDS ORDERED: CEFAZOLIN IV 2,000 MG in DEXTROSE 5% 50ML 50 ML IV SCH (12:45)
--- NOTE | 2017-08-26 13:09 | Anesthesiology Progress Note ---
Anesthesia Post Op Note Date & Time Aug 26, 2017 at 13:09 Vital Signs Pain Intensity: 0 Vital Signs Past 12 Hours Date Time Temp Pulse Resp B/P (MAP) Pulse Ox O2 Delivery O2 Flow Rate FiO2 08/26/17 13:05 36.3 66 16 109/68 96 Nasal Cannula 2 08/26/17 12:55 65 13 104/66 99 Oxymask 10 08/26/17 12:45 67 14 94/62 99 Oxymask 10 08/26/17 12:35 36.1 66 16 97/61 95 Oxymask 10 08/26/17 09:17 36.6 64 22 137/89 97 Room Air Notes Mental Status: alert / awake / arousable, participated in evaluation Pt Amnestic to Procedure: Yes Nausea / Vomiting: adequately controlled Pain: adequately controlled Airway Patency, RR, SpO2: stable & adequate BP & HR: stable & adequate Hydration State: stable & adequate Neuraxial Anesthesia: was administered, sensory block is resolving Anesthetic Complications: no major complications apparent
--- NOTE | 2017-08-26 13:11 | DIAGNOSTIC IMAGING REPORT ---
RIGHT KNEE 2 VIEWS History: Right total knee arthroplasty. Degenerative arthritis. Postop. FINDINGS: The patient is status post a right total knee arthroplasty. The hardware is intact. No fracture or dislocation. Surgical drains are in place. IMPRESSION: Right total knee arthroplasty. No evidence for hardware complication. Electronically signed by: Bob Black M.D. 08/26/2017 1:09 PM Dictated Date/Time: 08/26/2017 1:09 PM
[2017-08-26] MEDS ORDERED: MoRPHine SULFATE 4 MG/ML 1 ML CARP\\VIAL IV PRN (14:00)
[2017-08-26] MEDS ORDERED: MoRPHine SULFATE 10 MG/ML CARP/VIAL IV PRN (14:00)
[2017-08-26] MEDS: D5W AND 1/2NSS + 20MEQ KCL 1,000 ML IV SCH ×2 (14:20→23:49)
[2017-08-26] MEDS: ACETAMINOPHEN 500 MG TAB PO SCH ×2 (14:21→21:26)
[2017-08-26] MEDS: FERROUS GLUCONATE 324 MG TAB PO SCH (17:56)
[2017-08-26] MEDS: OXYCODONE HCL IR 5 MG TAB (IMMEDIATE RELEASE) PO PRN ×3 (17:56→23:50)
[2017-08-26] MEDS: CEFAZOLIN IV 2,000 MG in SYRINGE 0 ML IV SCH (17:57)
[2017-08-26] MEDS: DOCUSATE SODIUM 100 MG CAP PO SCH (21:23)
[2017-08-26] MEDS: CeleBREX 200 MG CAP PO SCH (21:24)
[2017-08-26] MEDS: ASPIRIN 81 MG ECTAB PO SCH (21:24)
[2017-08-26] MEDS: SENNA 8.6 MG TAB PO SCH (21:25)
[2017-08-27] MEDS: CEFAZOLIN IV 2,000 MG in SYRINGE 0 ML IV SCH (02:21)
[2017-08-27 03:32] VITALS: BP 107/67; PULSE 60; TEMP 35.8; O2SAT 96
[2017-08-27] MEDS: OXYCODONE HCL IR 5 MG TAB (IMMEDIATE RELEASE) PO PRN ×5 (04:38→22:01)
[2017-08-27] MEDS: ACETAMINOPHEN 500 MG TAB PO SCH ×3 (06:03→22:02)
--- NOTE | 2017-08-27 07:16 | Orthopedic Progress Note ---
Orthopedic Progress Note Date of Service Aug 27, 2017. Subjective Post OP Day: 1 (s/p Right TKA) Reports: feeling well, pain controlled w PO medications, Denies: complaints, chest pain, SOB, nausea / vomiting, light headedness, calf pain Objective calves soft nontender, N/V intact, capillary refill less than 2 sec., dressing C /D/I, A&O x3, toes mobile, hemovac drainage (300cc/8 hours) Date Time Temp Pulse Resp B/P (MAP) Pulse Ox O2 Delivery O2 Flow Rate FiO2 08/27/17 03:32 35.8 60 15 107/67 (80) 96 Room Air 08/26/17 23:50 CPAP 08/26/17 23:45 36.3 72 16 120/69 (86) 93 Room Air 08/26/17 21:19 36.6 80 18 114/62 (79) 96 Room Air 08/26/17 17:00 36.5 75 18 117/68 (84) 97 Nasal Cannula 2.0 08/26/17 15:30 36.3 75 16 112/66 (81) 97 Nasal Cannula 2.0 08/26/17 14:15 36.8 75 18 99/61 (74) 95 Nasal Cannula 2.0 08/26/17 13:30 36.3 69 18 109/68 (82) 98 Nasal Cannula 2.0 08/26/17 13:30 Nasal Cannula 08/26/17 13:30 Nasal Cannula 2.0 08/26/17 13:15 66 14 103/66 95 Nasal Cannula 2 08/26/17 13:05 36.3 66 16 109/68 96 Nasal Cannula 2 08/26/17 12:55 65 13 104/66 99 Oxymask 10 08/26/17 12:45 67 14 94/62 99 Oxymask 10 08/26/17 12:35 36.1 66 16 97/61 95 Oxymask 10 08/26/17 09:17 36.6 64 22 137/89 97 Room Air Laboratory Results 24 Hours: Test 08/27/17 04:44 Assessment & Plan Assessment: POD #1 s/p Right TKA -pt/ot -dvt proph with dari/scd/asa -plan for d/c home with OPPT when stable -hemovac 300cc/last shift Discharge Planning Discharge Planning: home with oppt DVT Prophylaxis: TEDs, SCDs, ASA Therapy: Physical Therapy
[2017-08-27 07:54] LABS: HEMATOCRIT 35.3 % (42-52); HEMOGLOBIN 11.7 g/dL (14.0-18.0); MEAN CELL VOLUME 84.7 fL (80-100); MEAN CORPUSCULAR HEMOGLOBIN 28.1 pg (25-34); MEAN CORPUSCULAR HGB CONC 33.1 g/dl (32-36); MEAN PLATELET VOLUME 10.6 fL (7.4-10.4); PLATELET COUNT 188 K/uL (130-400); RED CELL DISTRIBUTION WIDTH CV 13.9 % (11.5-14.5); RED CELL DISTRIBUTION WIDTH SD 43.1 fL (36.4-46.3); WHITE BLOOD COUNT 15.42 K/uL (4.8-10.8)
[2017-08-27 08:22] VITALS: BP 116/72; PULSE 61; TEMP 36.4; O2SAT 97
[2017-08-27 08:35] LABS: CALCIUM 8.7 mg/dl (8.5-10.1); CREATININE 0.98 mg/dl (0.60-1.40); POTASSIUM 4.8 mmol/L (3.5-5.1)
[2017-08-27] MEDS ORDERED: TESTOSTERONE TOP SCH (09:00)
[2017-08-27] MEDS: TESTOSTERONE 1.62 % GEL 75GM BTL TD SCH (09:03)
[2017-08-27] MEDS: FERROUS GLUCONATE 324 MG TAB PO SCH ×3 (09:04→18:02)
[2017-08-27] MEDS: ASPIRIN 81 MG ECTAB PO SCH ×2 (09:04→20:49)
[2017-08-27] MEDS: DOCUSATE SODIUM 100 MG CAP PO SCH ×2 (09:05→20:49)
[2017-08-27] MEDS: CeleBREX 200 MG CAP PO SCH ×2 (09:05→20:49)
[2017-08-27] MEDS: MULTIVITAMIN TAB PO SCH (09:05)
--- NOTE | 2017-08-27 09:12 | Anesthesiology Progress Note ---
Anesthesia Post Op Note Date & Time Aug 27, 2017 at 09:11 Vital Signs Pain Intensity: 3.0 Vital Signs Past 12 Hours Date Time Temp Pulse Resp B/P (MAP) Pulse Ox O2 Delivery O2 Flow Rate FiO2 08/27/17 08:22 36.4 61 16 116/72 (87) 97 Room Air 08/27/17 07:40 Room Air 08/27/17 03:32 35.8 60 15 107/67 (80) 96 Room Air 08/26/17 23:50 CPAP 08/26/17 23:45 36.3 72 16 120/69 (86) 93 Room Air 08/26/17 21:19 36.6 80 18 114/62 (79) 96 Room Air Notes Mental Status: alert / awake / arousable, participated in evaluation Pt Amnestic to Procedure: Yes Nausea / Vomiting: adequately controlled Pain: adequately controlled Airway Patency, RR, SpO2: stable & adequate BP & HR: stable & adequate Hydration State: stable & adequate Neuraxial Anesthesia: sensory block resolved Anesthetic Complications: no major complications apparent
[2017-08-27] MEDS: D5W AND 1/2NSS + 20MEQ KCL 1,000 ML IV SCH (09:45)
[2017-08-27 09:46] VITALS: O2SAT 97
[2017-08-27 11:48] VITALS: BP 118/64; PULSE 65; PULSE 98; TEMP 36.5; O2SAT 98
[2017-08-27 15:35] VITALS: BP 127/77; PULSE 69; TEMP 36.4; O2SAT 98
[2017-08-27] MEDS: SENNA 8.6 MG TAB PO SCH (20:50)
[2017-08-27 23:05] VITALS: BP 118/75; PULSE 67; TEMP 36.2; O2SAT 99
[2017-08-28] MEDS: OXYCODONE HCL IR 5 MG TAB (IMMEDIATE RELEASE) PO PRN ×3 (02:13→11:27)
[2017-08-28] MEDS: ACETAMINOPHEN 500 MG TAB PO SCH (06:07)
[2017-08-28] MEDS: TESTOSTERONE 1.62 % GEL 75GM BTL TD SCH (06:07)
[2017-08-28 06:38] VITALS: BP 115/72; PULSE 65; TEMP 36.5; O2SAT 98
[2017-08-28] MEDS: FERROUS GLUCONATE 324 MG TAB PO SCH (07:23)
[2017-08-28] MEDS: MULTIVITAMIN TAB PO SCH (07:24)
[2017-08-28] MEDS: DOCUSATE SODIUM 100 MG CAP PO SCH (07:24)
[2017-08-28] MEDS: ASPIRIN 81 MG ECTAB PO SCH (07:24)
[2017-08-28] MEDS: CeleBREX 200 MG CAP PO SCH (07:24)
--- NOTE | 2017-08-28 10:45 | Orthopedic Progress Note ---
Orthopedic Progress Note Date of Service Aug 28, 2017. Subjective Post OP Day: 2 Reports: feeling well Objective calves soft nontender, N/V intact, dressing C/D/I, toes mobile Date Time Temp Pulse Resp B/P (MAP) Pulse Ox O2 Delivery O2 Flow Rate FiO2 08/28/17 07:20 Room Air 08/28/17 06:38 36.5 65 18 115/72 (86) 98 Room Air 08/27/17 23:15 CPAP 08/27/17 23:05 36.2 67 18 118/75 (89) 99 Room Air 08/27/17 15:45 Room Air 08/27/17 15:35 36.4 69 18 127/77 (94) 98 Room Air 08/27/17 11:48 36.5 65 16 118/64 (82) 98 Room Air Assessment & Plan Assessment: POD #2 s/p Right TKA -pt/ot -dvt proph with dari/scd/asa -plan for d/c home with OPPT Discharge Planning Discharge Planning: home with oppt DVT Prophylaxis: TEDs, SCDs, ASA Therapy: Physical Therapy
[2017-08-28] MEDS ORDERED: RXC5 PO (10:47)
[2017-08-28] MEDS ORDERED: ACET-24 PO (10:47)
[2017-08-28] MEDS ORDERED: CLB200 PO (10:47)
[2017-08-28] MEDS ORDERED: ASPEC81 PO (10:47)
--- NOTE | 2017-08-28 10:48 | Discharge Instructions ---
Discharge Instructions Date of Service Aug 28, 2017. Admission Reason for Admission: Right Knee Osteoarthritis Discharge Discharge Diagnosis / Problem: Right knee arthritis Discharge Goals Goal(s): Decrease discomfort, Improve function Activity Recommendations Activity Limitations: as noted below Weightbearing Status: Right weightbearing (as tolerated) . Instructions / Follow-Up Instructions / Follow-Up ACTIVITY RECOMMENDATIONS: SELF CARE INSTRUCTIONS AFTER TOTAL KNEE REPLACEMENT A. You may need to continue a physical therapy program after discharge from the hospital. There are several options available to you. Your doctor will assist you in selecting the best one for you. 1. An out-patient facility 2 to 3 times a week for therapy or home therapy. 2. Continue working on all exercises taught to you in the hospital. Your goals should be to increase bending of your knee to 90 degrees and beyond and to fully straighten your knee. B. You may progress at your own pace from walking with a walker or crutches to a cane; then to no assistive devices. C. Make walking a part of your daily routine. Be up as much as comfortable with rest periods throughout the day. Rest with leg elevation is very important. Use the ice wrap frequently for the first 3-4 weeks. D. There are no restrictions on activities. You may ride in a car, shop, participate in filing writer and all social activities. E. Wear the long elastic stockings (NARESH hose) 20 hours a day for 2 weeks after surgery. They can be removed several times a day for laundering and for a bath. F. You may shower, no tub baths until cleared by your doctor. SPECIAL CARE INSTRUCTIONS: VERY IMPORTANT TO READ AND REVIEW A. There are a few signs you need to watch for after you are home. Call [facility] if you notice any of the followin. Increased severe knee pain. Some pain is expected especially when you exercise. 2. Increased swelling in your leg or knee; pain or swelling of the calf muscle in either lower leg. 3. Any fluid drainage from the incision. 4. Shortness of breath or chest pain. B. Please call [facility] at if you have any concerns or questions about your operation or recovery. The doctor or his nurse will return your call promptly. C. You must take antibiotics before dental work, bladder, bowel or other surgery. Your doctor will provide you with a permanent care to carry describing this precaution. IMPORTANT: * REMEMBER TO TAKE ASPIRIN, 81 MG, TWICE DAILY FOR 4 WEEKS UNLESS OTHERWISE DIRECTED. THIS IS YOUR BLOOD THINNER. * HIGH RISK PATIENTS MAY BE PRESCRIBED A STRONGER BLOOD THINNER. THIS WILL BE PROVIDED AT DISCHARGE. * CALL IF INCREASED PAIN, REDNESS, DRAINAGE OR FEVER GREATER THAT 101. * WEAR NARESH HOSE 20 HOURS PER DAY FOR 2 WEEKS. FOLLOW UP VISIT: If appointment is not already scheduled: Please call [facility] to make a follow-up appointment for 2 weeks after your surgery at . Current Hospital Diet Patient's current hospital diet: Regular Diet Discharge Diet Recommended Diet: Regular Diet Procedures Procedures Performed: Right total knee arthroplasty Pending Studies Studies pending at discharge: no Laboratory Results Hemoglobin A1c Test 08/22/17 10:24 Range/Units Estimated Average Glucose 117 mg/dl Hemoglobin A1c 5.7 H 4.5-5.6 % Medical Emergencies . Who to Call and When: Medical Emergencies: If at any time you feel your situation is an emergency, please call 911 immediately. . Non-Emergent Contact Non-Emergency issues call your: Surgeon Call Non-Emergent contact if: temperature is above 101.5, your pain is not controlled, wound has increased drainage, wound has increased redness . "Provider Documentation" section prepared by Casper Fatima PA-C. . VTE Core Measure Inpt VTE Proph given/why not?: Other Anticoagulation (ASA 81mg bid), T.E.D. Stockings, SCD's [place] Drug Monitoring Program Search Results: patient reviewed within database, no issues identified
[2017-08-28 11:11] VITALS: BP 115/72; PULSE 65; TEMP 36.5; O2SAT 98
== END 2017-08-28 12:03 | disposition home or self-care (01) | DRG 470 ==
LOC: C.ACU 08:36 → C.3E 09:00 → ENRESERV 13:06
PROVIDERS: ADMIT Orthopaedic Surgery; ATTEND Orthopaedic Surgery
PROC: 0SRC0J9 Replacement of Right Knee Joint with Synthetic Substitute, Cemented, Open Approach (ICD-10-PCS; principal; 2017-08-26 11:00)
DX: M17.11 Unilateral primary osteoarthritis, right knee (principal)